=== PATIENT | male | born 1975 | race American Indian/Alaskan Native ===

== ENCOUNTER 2021-05-19 08:16 | Emergency (ER) | payer SELFPAY ==
[2021-05-19 08:28] VITALS: BP 164/106
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
--- NOTE | 2021-05-22 11:08 | Electrocardiograph Report ---
[facility] Test Date: 2021-05-19 Test Time: 08:32:38 Pat Name: SHOSHANA ESPINO Department: Room: Gender: [employer]: : 1975 Requested By: ARCENIO DELGADO Order Number: [id number] Reading MD: Misael Echavarria Measurements Intervals [place] Rate: 88 P: 10 KS: 157 QRS: 14 QRSD: 81 T: 37 QT: 368 QTc: 446 Interpretive Statements Sinus rhythm ST elev, probable normal early repol pattern No previous ECG available for comparison Electronically Signed On 05-22-2021 11:07:41 EDT by Misael Echavarria
== END 2021-05-19 09:30 | disposition home or self-care (01) ==
LOC: ED 08:16
DX: I10 Essential (primary) hypertension (principal); Z98.890 Other specified postprocedural states; Z79.899 Other long term (current) drug therapy
CPT/HCPCS: 93005; 99281